=== PATIENT | female | born 1990 | race African-American/Black ===

== ENCOUNTER 2021-07-31 05:11 | Emergency (ER) | payer OTHER ==
[~2021-07-31] VITALS: Ht 152.4 cm; Wt 106.8 kg
[2021-07-31 05:21] VITALS: TEMP 97
[2021-07-31] MEDS ORDERED: NORVASC 5MG5 MG/TAB PO (05:37)
[2021-07-31] MEDS ORDERED: AMOXICILLIN 50500 MG PO (05:58)
[2021-07-31 06:07] VITALS: BP 159/113; PULSE 93
== END 2021-07-31 06:12 | disposition home or self-care (01) ==
LOC: COL.ER 05:11
DX: H66.91 Otitis media, unspecified, right ear (principal); I10 Essential (primary) hypertension

== ENCOUNTER 2021-08-02 03:52 | Emergency (ER) | payer OTHER ==
[~2021-08-02] VITALS: Ht 152.4 cm; Wt 106.8 kg
[~2021-08-02 03:52] MED LIST: AMOXICILLIN 50500 MG PO; NORVASC 5MG5 MG/TAB PO
[2021-08-02] MEDS ORDERED: LEVAQUIN 750MG750 M1 PO (04:51)
[2021-08-02 05:11] VITALS: BP 144/84; PULSE 89; TEMP 97.9
== END 2021-08-02 05:11 | disposition home or self-care (01) ==
LOC: COL.ER 03:52
DX: H60.91 Unspecified otitis externa, right ear (principal); H66.91 Otitis media, unspecified, right ear